=== PATIENT | female | born 1995 | race African-American/Black ===

== ENCOUNTER 2021-01-15 20:33 | Emergency (ER) | payer MEDICAID ==
[~2021-01-15] VITALS: Ht 167.6 cm; Wt 73.0 kg
[2021-01-15] MEDS ORDERED: ACETAMINOPHEN 325MG TABLET PO ONE (21:45)
[2021-01-15 23:02] LABS: BASOPHILS % 0.5 % (0.0-2.0); EOSINOPHILS % 0.6 % (0.0-5.0); HEMATOCRIT. 34.9 % (36.0-48.0); HEMOGLOBIN. 11.7 g/dL (12.0-16.0); LYMPHOCYTES % 21.8 % (20.0-50.0); MEAN CORPUSCULAR HEMOGLOBIN 28.8 pg (28.0-32.0); MEAN CORPUSCULAR VOLUME 85.8 fL (81.0-99.0); MEAN PLATELET VOLUME 7.8 fl (7.4-10.4); MONOCYTES % 7.3 % (2.0-8.0); NEUTROPHILS % 69.8 % (40.0-76.0); PLATELET 313 x1000/uL (130-400); RED BLOOD CELL COUNT 4.07 mill/uL (4.2-5.4); RED CELL DISTRIBUTION WIDTH 13.4 % (11.6-14.6)
[2021-01-15 23:05] LABS: CLARITY URINE CLEAR (CLEAR); COLOR URINE YELLOW (YELLOW); KETONES URINE NEGATIVE (NEGATIVE); LEUKOCYTE ESTERASE URINE 1+ (NEGATIVE); NITRITE URINE POSITIVE (NEGATIVE); OCCULT BLOOD URINE 1+ (NEGATIVE); PROTEIN URINE TRACE (NEGATIVE); SPECIFIC GRAVITY URINE 1.015 (1.005-1.030); UROBILINOGEN URINE 0.2 E.U./dL (0.2-1.0)
[2021-01-15 23:08] LABS: CHLORIDE 110 mEq/L (98-107)
[2021-01-15 23:15] LABS: ETHANOL BLOOD < 10 mg/dL
[2021-01-15 23:15] LABS: *AMPHETAMINES SCREEN URINE NEGATIVE (NEGATIVE); *BARBITURATES SCREEN URINE NEGATIVE (NEGATIVE); *BENZODIAZEPINES SCREEN URINE NEGATIVE (NEGATIVE)
[2021-01-15 23:16] LABS: *COCAINE SCREEN URINE NEGATIVE (NEGATIVE); CANNABINOID URINE SCREEN NEGATIVE (NEGATIVE); METHADONE URINE SCREEN NEGATIVE (NEGATIVE); OPIATES URINE SCREEN NEGATIVE (NEGATIVE); PHENCYCLIDINE URINE SCREEN NEGATIVE (NEGATIVE)
[2021-01-15 23:51] VITALS: BP 109/62
[2021-01-15] MEDS ORDERED: LIDO700A15 TP (23:57)
[2021-01-15] MEDS ORDERED: BACL-141 MT (23:57)
[2021-01-15] MEDS ORDERED: IBUP-2029 MT (23:57)
== END 2021-01-16 00:45 | disposition home or self-care (01) ==
LOC: ER 20:33
DX: S13.4XXA Sprain of ligaments of cervical spine, initial encounter (principal); M25.551 Pain in right hip; M25.561 Pain in right knee; F17.290 Nicotine dependence, other tobacco product, uncomplicated; F12.10 Cannabis abuse, uncomplicated; D64.9 Anemia, unspecified; Z13.9 Encounter for screening, unspecified; V49.40XA Driver injured in collision with unspecified motor vehicles in traffic accident, initial encounter; Y93.89 Activity, other specified; Y92.89 Other specified places as the place of occurrence of the external cause; Y99.8 Other external cause status
CPT/HCPCS: 36415; 73502; 73562; 80053; 80305; 80307; 80320; 80329; 81003; 81025; 85025; 93005; 99285; 99406; G0480